=== PATIENT | female | born 2000 | race Two or more races ===

== ENCOUNTER 2025-06-05 22:48 | Emergency (ER) | payer MEDICAID, SELFPAY ==
[2025-06-05 22:50] VITALS: BMI 38.6
--- NOTE | 2025-06-05 22:53 | EKG_ITS ---
[facility] Test Date: 2025-06-05 Pat Name: ELSA NIEVES Department: Room: - Gender: Female Transportation Broker: : [id number] Requested By: Eduardo Barnett Order Number: [id number] Reading MD: Eduardo Barnett Measurements Intervals [place] Rate: 89 P: 31 SD: 141 QRS: -2 QRSD: 109 T: 16 QT: 353 QTc: 431 Interpretive Statements SINUS RHYTHM No previous ECG available for comparison /store/[email or web address]/[id number].pdf
[2025-06-05 23:31] VITALS: BP 150/94; PULSE 89; RESP 20; TEMP 36.8; O2SAT 99
[2025-06-05] MEDS: DIAZEPAM 5 MG TABLET PO (23:52)
--- NOTE | 2025-06-06 00:02 | PD.EDANX ---
ED Anxiety RME/HPI General Chief Complaint: Chest Pain Stated Complaint: CHEST THIGHNESS AND PAIN RIGHT ARM, SOB Time Seen by Provider: 06/05/25 23:44 Arrival date/time: 06/05/25 22:48 24F with history of anxiety (not on meds) presents to ED with 1 day of chest pain/tightness that radiates down R arm, as well as some SOB. Patient denies leg swelling, URI symptoms symptoms, and recent travel. Limitations: no limitations Related Data Home Medications ?Medication ?Instructions ?Recorded ?Confirmed albuterol sulfate 0.63 mg/3 mL 0.63 mg ##0 05/13/13 solution for nebulization Allergies Allergy/AdvReac Type Severity Reaction Status Date / Time Penicillins Allergy Unknown RASH Verified 06/05/25 22:49 Past Medical History Social History SMOKING STATUS: Current every day smoker ED Exam General Limitations: Present no limitations General appearance: Present alert, in no apparent distress and anxious Head Head exam: Present atraumatic Eye Eye exam: Present normal appearance, PERRL and EOMI ENT ENT exam: Present normal exam, normal oropharynx and mucous membranes moist Neck Neck exam: Present normal inspection, full ROM and trachea midline Chest Chest inspection: Present normal inspection and symmetric chest wall rise Respiratory Respiratory exam: Present normal lung sounds bilaterally Cardiovascular Cardiovascular exam: Present regular rate, normal rhythm and normal heart sounds Abdominal Exam Abdominal exam: Present soft and normal bowel sounds Extremities Exam Extremities exam: Present normal inspection and full ROM Back Exam Back exam: Present normal inspection and full ROM Neurological Exam Neurological exam: Present alert, oriented X3 and CN II-XII intact Psychiatric Psychiatric exam: Present normal affect and normal mood Skin Skin exam: Present warm, dry, intact and normal color Course Quality Measures none Orders Category Date Time Status EKG (ED ONLY) *Do not use* NOW Care 06/05/25 22:53 Completed EKG (ED Only) Stat Exams 06/05/25 22:53 Draft Diazepam [Valium] Med 06/05/25 23:45 Discontinued 5 mg PO X1 ONE Vital Signs Vital signs: Vital Signs Temperature 98.2 F 06/05/25 23:31 Pulse Rate 89 06/05/25 23:31 Respiratory Rate 20 06/05/25 23:31 Blood Pressure 150/94 H 06/05/25 23:31 Pulse Oximetry (%) 99 06/05/25 23:31 Oxygen Delivery Method Room Air 06/05/25 23:31 Anxiety MDM Narrative MDM Narrative: 24F with history of anxiety (not on meds) presents to ED with 1 day of chest pain/tightness that radiates down R arm, as well as some SOB. Patient denies leg swelling, URI symptoms symptoms, and recent travel. Physical exam reveals clear lungs and normal WOB. RRR. Patient is afebrile, alert, but anxious. EKG is NSR. Valium relieved symptoms. Director Banking given. Patient data External records reviewed:: [facility] previous records Clinical information provided by:: patient Social determinants that could affect healthcare access:: mental health Patient has the following chronic illnesses:: anxiety How is presenting disease/condition affected by chronic disease/condition?: exacerbated by Evaluation data The following diagnostics were reviewed and interpreted by me:: EKG tracing(s) Lab and/or radiology exams considered but not ordered:: ordered Interpretation Summary: above Medications / Prescriptions Medications or Prescriptions considered but not ordered:: ordered Medication administrations:: Medication Administration History Discontinued Medications Diazepam (Diazepam 5 Mg Tablet) 5 mg PO X1 ONE Stop: 06/05/25 23:46 Last Admin: 06/05/25 23:52 Dose: 5 mg Documented By: OA Consultations Consultation(s) initiated? (list below): No Diagnosis Differential diagnosis anxiety: hyperventilation, panic disorder and acute anxiety Most likely diagnosis given after review of the tests above:: anxiety Admission Indicated Admission indicated?: not indicated Admission Request Was there a request for admission?: No Disposition Plan Disposition Plan: Discharge Discharge Attestation Discharge Attestation: The patient and all family members were given an opportunity to ask questions and understood the discharge instructions. Discharge instructions specifically effects, indications for sooner follow up or return to the emergency department, and the expected course of current diagnosis. Patient condition: Stable Discharge Plan Plan Patient Disposition: HOME (Self Care) Discharge Disposition comment: Stable Prescriptions/Referrals Prescriptions/Med Rec: No Action albuterol sulfate 0.63 MG/3 ML solution for nebulization 0.63 mg IH Qty: 0 Referrals: No Primary/Family,Physician [Primary Care Provider] - In 1 week Problem List Clinical Impression: Anxiety Patient/Caregiver Discharge Instructions Education Materials: Your Body's Response to Anxiety, Treating Anxiety Disorders ... Additional Instructions: Please follow-up with PCP within 24-48 hours and return immediately if symptoms worsen. Print Language: German Stand Alone Forms: Patient Portal Info Letter PA/BLEACH SUPERVISOR Supervising Physician PA/BLEACH SUPERVISOR Supervising Physician: Dr. Segovia
[2025-06-06 00:25] VITALS: BP 136/88; PULSE 82; RESP 17; TEMP 36.9; O2SAT 97
== END 2025-06-06 00:50 | disposition home or self-care (01) ==
PROVIDERS: Emergency Provider Emergency Medicine
DX: F41.9 Anxiety disorder, unspecified (principal); R07.9 Chest pain, unspecified
CPT/HCPCS: 93005; 99283; A9270

== ENCOUNTER 2025-06-14 20:03 | Emergency (ER) | payer MEDICAID, SELFPAY ==
[2025-06-14 20:04] VITALS: BMI 34.3
[2025-06-14 20:12] VITALS: BP 146/73; PULSE 104; RESP 19; TEMP 36.5; O2SAT 99
--- NOTE | 2025-06-14 23:20 | PD.EDANX ---
ED Anxiety RME/HPI General Chief Complaint: Anxiety Stated Complaint: ANXIOUS Time Seen by Provider: 06/14/25 21:25 Arrival date/time: 06/14/25 20:03 24F with history of anxiety (not on meds) presents to ED with panic attacks. Patient recently here for this. Patient states she feels okay now. Patient has PCP appt next week. Patient denies SI/HI. Limitations: no limitations Related Data Home Medications ?Medication ?Instructions ?Recorded ?Confirmed albuterol sulfate 0.63 mg/3 mL 0.63 mg ##0 05/13/13 solution for nebulization Allergies Allergy/AdvReac Type Severity Reaction Status Date / Time Penicillins Allergy Unknown RASH Verified 06/05/25 22:49 Review of Systems Review of Systems Systems Reviewed: All systems reviewed, normal except as documented Constitutional Constitutional: Reports system reviewed and no additional complaints, except as documented, Denies fever(s) and Denies headache(s) ENT Ears, Nose, Mouth, and Throat: Denies disequilibrium and Denies headache(s) Cardiovascular Cardiovascular: Reports system reviewed and no additional complaints, except as documented, Denies chest pain and Denies dyspnea Respiratory Respiratory: Reports system reviewed and no additional complaints, except as documented, Denies cough and Denies dyspnea Gastrointestinal Gastrointestinal: Reports system reviewed and no additional complaints, except as documented, Denies abdominal pain, Denies nausea and Denies vomiting Neurologic Neurologic: Reports system reviewed and no additional complaints, except as documented, Denies confusion, Denies disequilibrium and Denies headache(s) Psychiatric Psychiatric: Reports as per HPI, Denies confusion and Reports panic attacks Past Medical History Social History SMOKING STATUS: Former smoker ED Exam General Limitations: Present no limitations General appearance: Present alert and in no apparent distress Head Head exam: Present atraumatic Neck Neck exam: Present normal inspection, full ROM and trachea midline Chest Chest inspection: Present normal inspection and symmetric chest wall rise Extremities Exam Extremities exam: Present normal inspection and full ROM Back Exam Back exam: Present normal inspection and full ROM Neurological Exam Neurological exam: Present alert, oriented X3 and CN II-XII intact Psychiatric Psychiatric exam: Present normal affect and normal mood Skin Skin exam: Present warm, dry, intact and normal color Course Quality Measures none Orders Category Date Time Status hydrOXYzine HCL [Atarax] Med 06/14/25 21:26 Discontinued 25 mg PO X1 ONE Vital Signs Vital signs: Vital Signs Temperature 97.7 F 06/14/25 20:12 Pulse Rate 104 H 06/14/25 20:12 Respiratory Rate 19 06/14/25 20:12 Blood Pressure 146/73 H 06/14/25 20:12 Pulse Oximetry (%) 99 06/14/25 20:12 Oxygen Delivery Method Room Air 06/14/25 20:12 Anxiety MDM Narrative MDM Narrative: 24F with history of anxiety (not on meds) presents to ED with panic attacks. Patient recently here for this. Patient states she feels okay now. Patient has PCP appt next week. Patient denies SI/HI. Physical exam reveals well-appearing female. Patient is afebrile, calm, and only mildly anxious. Meds and educational guidance counselor given. Patient data External records reviewed:: [facility] previous records Clinical information provided by:: patient Social determinants that could affect healthcare access:: mental health Patient has the following chronic illnesses:: anxiety How is presenting disease/condition affected by chronic disease/condition?: caused by Evaluation data The following diagnostics were reviewed and interpreted by me:: other (specify) (none) Lab and/or radiology exams considered but not ordered:: not ordered Interpretation Summary: n/a Medications / Prescriptions Medications or Prescriptions considered but not ordered:: ordered Medication administrations:: Medication Administration History Discontinued Medications Hydroxyzine HCl (Hydroxyzine Hcl 25 Mg Tablet) 25 mg PO X1 ONE Stop: 06/14/25 21:27 Last Admin: 06/14/25 21:35 Dose: 25 mg Documented By: Consultations Consultation(s) initiated? (list below): No Diagnosis Differential diagnosis anxiety: hyperventilation, panic disorder and acute anxiety Most likely diagnosis given after review of the tests above:: panic disorder Admission Indicated Admission indicated?: not indicated Admission Request Was there a request for admission?: No Disposition Plan Disposition Plan: Discharge Discharge Attestation Discharge Attestation: The patient and all family members were given an opportunity to ask questions and understood the discharge instructions. Discharge instructions specifically effects, indications for sooner follow up or return to the emergency department, and the expected course of current diagnosis. Patient condition: Stable Discharge Plan Plan Patient Disposition: HOME (Self Care) Discharge Disposition comment: Stable Prescriptions/Referrals Prescriptions/Med Rec: No Action albuterol sulfate 0.63 MG/3 ML solution for nebulization 0.63 mg IH Qty: 0 Problem List Clinical Impression: Panic disorder Patient/Caregiver Discharge Instructions Education Materials: Understanding Panic Disorder ..., Panic Disorder Tx Additional Instructions: Please follow-up with PCP within 24-48 hours and return immediately if symptoms worsen. Print Language: French Stand Alone Forms: Patient Portal Info Letter PA/FORENSIC STRUCTURAL ENGINEER Supervising Physician PA/FORENSIC STRUCTURAL ENGINEER Supervising Physician: Dr. Fish
== END 2025-06-14 21:50 | disposition home or self-care (01) ==
LOC: SERX 21:51
PROVIDERS: Emergency Provider Emergency Medicine
DX: F41.0 Panic disorder [episodic paroxysmal anxiety] (principal)
CPT/HCPCS: 99282; A9270